=== PATIENT | male | born 1965 | race Caucasian/White ===

== ENCOUNTER → 2017-04-26 14:59 | Outpatient (CLI) | payer OTHER, SELFPAY ==
--- NOTE | 2017-04-26 15:02 | RAD_ITS ---
STUDY: X-RAY - THORACIC SPINE REASON FOR EXAM: Male, 51 years old. Pain TECHNIQUE: 3 view(s) of the thoracic spine were obtained. COMPARISON: MRI 05/28/2016. FINDINGS: There is a severe compression fracture of T10 which has been treated with kyphoplasty. There is an increase in the normal thoracic kyphosis centered at the compression fracture. There is no substantial scoliosis. Normal thoracic vertebrae and endplates. Normal disc space heights. The soft tissue structures are unremarkable. RAD/Thoracic Spine 3 Views IMPRESSION: Compression fracture of T10 treated with kyphoplasty. No other focal or acute abnormalities. Electronically Signed: Cornelius Morris MD at 15:30 EDT , Service support ,
== END ==
PROVIDERS: Family Provider Family Medicine; PCP Family Medicine; Visit Provider Orthopaedic Surgery
DX: M54.6 Pain in thoracic spine (principal)
CPT/HCPCS: 72072

== ENCOUNTER 2017-10-10 12:04 | Day surgery (SDC) | payer OTHER, SELFPAY ==
[2017-08-04 09:01] VITALS: BMI 25.7
[2017-10-10] VITALS (7 sets, daily range): BP systolic 99–121; BP diastolic 59–91; PULSE 58–89; RESP 14–18; TEMP 36.6; O2SAT 96–99; BMI 24.3
--- NOTE | 2017-10-10 | IMM_PTH ---
PATIENT: PAUL EMERSON LOC: EN U#:[id number] AGE/SX: 52/M ROOM: RE10/10/[address]: Dr. Neptali Rahman MD : 1965 BED: DIS: 10/10/2017 SPEC #: [id number] RECD: 10/12/17 14:19 STATUS: NICHOLE REJill #: [id number] DINORA: 10/10/17 00:[address]: Neptali Rahman DEPT: IMMUNOHISTOCHEMISTRY RECD BY: Chayo Anderson ENTERED: 10/12/17 14:20 SP TYPE: IMMUNO OTHR DR: Dr. Darrell Melo MD Tissues: A - Stomach, NOS Procedures: H Pylori (initial) PHYSICIAN & INSTITUTION [place] [id number] SPECIMEN INFORMATION: Tissue Source: A ? Antral biopsy Clinical Info: Reflux, Colon CA screen Specimen Number: [id number] CPT code: 85014 METHODOLOGY: Deparaffinized sections of prefer/formalin-fixed tissue or PAP/DQ stained slides are incubated with monoclonal/polyclonal antibodies/oligonucleotide probes. Localization is made via biotin free immunoperoxidase method. Appropriate controls are performed and reacted as expected. Results on target cell population are indicated in the following table: RESULTS: ANTIBODY / CLONE RESULT Block A H Pylori (polyclonal) negative These tests were developed and their performance characteristics determined by [facility]. They may not have been cleared or approved by the U.S. Food and Drug Administration. The FDA has determined that such clearance or approval is not necessary. INTERPRETATION: Gastric antrum, biopsy: Negative for Helicobacter pylori organisms. AM:osvaldo 10/13/17
--- NOTE | 2017-10-10 07:13 | PCM.HP.BLA ---
History and Physical Date of Admission: 10/10/17 HISTORY AND PHYSICAL ? Munir Grove 1965 ? REFERRING PHYSICIAN: ~~Guillermo Melo ? CHIEF COMPLAINT: ~~Consult (Consult Colonoscopy) ? HPI: The patient is a 52 year old male referred for endoscopy. ~Munir notes no colon complaints. ~He denies any change in bowel habits, weight changes, blood in stools, black tarry stools or abdominal pain. ~He denies any family history of colon issues. ~He notes heartburn and reflux symptoms, unsure if this night be related to his medications. ~Munir has not~undergone prior endoscopy. ~ ? The patient is being seen by me today at the request of Dr. Melo~for my opinion and advice regarding screening colonoscopy. ~Past medical history significant for asthma, chronic back pain for which he follows with pain management, past history of DVT, hyperlipidemia, multiple myeloma for which he follows with Dr. Perkins. ~Patient denies any chest pain, shortness of breath or other concerns. ~He denies problems with sedation in the past. ? ? PAST?MEDICAL?HISTORY PAST MEDICAL HISTORY Diagnosis Date Asthma ? Chronic cholecystitis ? ? s/p cholecystectomy Compression fracture of body of thoracic vertebra (HCC) ? ? [facility] DVT (deep venous thrombosis) (HCC) ? Hyperlipidemia ? Migraine ? Multiple myeloma (HCC) ? ? Seeing Dr. Perkins and Dr. Quiroz Palpitation ? Skin cancer of face ? ? squamous cell, Seeing Miki Boucher yearly ? ? PAST?SURGICAL?HISTORY PAST SURGICAL HISTORY Procedure Laterality Date CHOLECYSTECTOMY W/CHOLANGIOGRAPHY ? 02/19/2016 EXTRACTION ERUPTED TOOTH/EXR ? ? ? wisdom teeth KNEE SURGERY HX ? ? ? arthroscopic, bilateral PAST SURGICAL HISTORY OF Right ? ? knee bursa sac removal VERTEBROPLASTY ? 09/2016 ? T10 ? ? CURRENT?MEDICATIONS ? Current Outpatient Prescriptions: calcium carbonate/vitamin D3 (CALCIUM 500 + D ORAL) Take by mouth. [START ON 07/22/2017] morphine SR (MS CONTIN) 15 mg 12 hr tablet Take 1 tablet by mouth every 8 hours for 30 days. FOR PAIN.Earliest Fill Date: 07/22/17 lenalidomide (REVLIMID) 10 mg capsule Take 1 capsule by mouth once daily for 21 days. Every 28 days acyclovir (ZOVIRAX) 400 mg tablet Take 400 mg by mouth twice daily. triamcinolone acetonide (KENALOG) 0.1 % cream Apply 1 application to affected area twice daily. Apply sparingly to area for rash/itching. ranitidine (ZANTAC) 150 mg tablet Take 1 tablet by mouth daily at bedtime. aspirin, enteric coated (ASPIRIN, ENTERIC COATED) 325 mg EC tablet Take 1 tablet by mouth once daily. POLYETHYLENE GLYCOL 3350 (MIRALAX ORAL) Take ~by mouth. as needed albuterol HFA (PROAIR HFA) 90 mcg/actuation inhaler Inhale 2 Puffs as instructed every 4 hours as needed. fluticasone (FLOVENT HFA) 44 mcg/actuation inhaler Inhale 2 Puffs as instructed twice daily. Use with spacer. Rinse mouth out after use. (Patient not taking: Reported on 06/17/2017 ) oxyCODONE IR (ROXICODONE) 5 mg immediate release tablet Take 1 tablet by mouth every 6 hours as needed. ? No current facility-administered medications for this visit. ? ALLERGIES: Iodine; Seasonal Allergies ? PERSONAL HISTORY: SOCIAL?HISTORY Social History ~~Marital status: ~~~~~~~~~~~~Spouse name: ~~~~~~~~~~~~~~~~~~ ~~Years of education: ~~~~~~~~~~~~~~~~Number of children: ~~~~~~~~~~ ? 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 Social History Main Topics ~~Smoking status: Former Smoker ~~~~~~~~~~~~~~~~~~~~~~~~~~~~~~~~~~~~~~~~~~~~~~~~~~~~~~~~ ~~~~~Packs/day: 1.00 ~~~~~Years: 5.00 ~~~ ~~~~~Types: Cigarettes ~~~~~Quit date: 02/14/1991 ~~Smokeless tobacco: Never Used ~~~~~~~~~~~~~~~~~~~ ~~Comment: quit approx 1991 ~~Alcohol use: No ~~~~~~~~~ ~~Drug use: No ~~~~~~~~~ ~~Sexual activity: Not Currently ~~~ ? ? FAMILY HISTORY: FAMILY?HISTORY FAMILY HISTORY Problem Relation Age of Onset Breast Cancer Mother ? ? ? breast Diabetes Paternal Grandmother ? Cancer Paternal Aunt ? ? REVIEW OF SYMPTOMS: ~~The review of systems data was entered by the nurse and reviewed by me ? Nursing Notes: Kevin Tyson LPN ~07/20/2017 ~3:56 PM ~Signed REVIEW OF SYSTEMS: ~~~~~General:~~~The patient NOTES fatigue, denies weight loss, denies weight gain, denies feeling hot, and denies feelings of cold. ~~~~~Eyes: ~The patient denies glaucoma, denies eye injury/surgery, wears glasses or contacts. ~~~~~Ear/Nose/Throat: ~The patient NOTES allergies, denies hayfever, denies ear infections, and denies bloody noses. ~~~~~Cardiovascular: ~The patient denies chest pain, denies heart disease, denies high blood pressure,denies cardiac stent, denies prior heart attack, denies irregular heart beat, denies high cholesterol, ~NOTES poor circulation, denies heart failure, other cardiac issues, denies claudication, denies cold feet, denies peripheral arterial stent. ~~~~~Respiratory: ~The patient denies tuberculosis, denies pneumonia, denies frequent cough, denies pulmonary embolism, denies shortness of breath, and denies coughing up blood. ~~~~~Gastrointestinal: ~The patient denies difficulty swallowing, NOTES acid reflux, denies ulcers, NOTES vomiting, denies jaundice/hepatitis, denies gallbladder problems, denies black or tarry stools, NOTES hemorrhoids, NOTES bleeding from rectum, denies diverticulitis, denies constipation, denies diarrhea, denies loss of stool control, and denies hernias. ~~~~~Kidney/Bladder: ~The patient denies kidney stones, denies urine infections, and denies bloody urine. ~~~~~Skin: ~The patient NOTES a history of skin cancer, denies bleeding/changing moles, and denies a history of skin rash. ~~~~~Neurologic: ~The patient denies a history of epilepsy/convulsions, NOTES headaches, denies head/spinal injuries, and denies stroke/TIA. ~~~~~Psychiatric: ~The patient denies psychiatric medications, denies depression, and denies voices, denies substance abuse. ~~~~~Endocrine: ~The patient denies thyroid disorders, denies diabetes, and denies hormonal problems. ~~~~~Hematologic: ~The patient denies a history of bruising, denies bleeding, and denies anemia, denies blood clots. ~~~~~Infections: ~The patient denies a history of measles and mumps, denies rheumatic fever, and denies sexually transmitted diseases. ~~~~~Musculoskeletal: ~The patient NOTES back pain/injury, denies back problems, denies sciatica, denies knee/foot trouble, denies arthritis, or denies gout. ? ? When was patient's last Mammogram screening? N/A ? ~Last Colonoscopy: ~N/a ? Kevin Tyson LPN~ I have confirmed and edited as necessary, the PFSH and ROS obtained by others. ? PHYSICAL EXAMINATION: ? General: ~The patient is 52 year old male, well nourished, well hydrated in no acute distress. ~The patient is oriented to time, place, and person. ? VITALS: Blood pressure 108/78, pulse 60, weight 92.4 kg (203 lb 9.6 oz).~Body mass index is 26.86 kg/m?.~ ? HEENT: ~Normal cephalic, ataumatic, pupils are equally round, sclera are anicteric, mucous membranes are moist, oropharynx is clear. ~Neck has no masses, asymmetry or lymphadenopathy. ? Respiratory: ~Clear to auscultation and percussion. ~Normal respiratory excursion and pattern. ? Cardiac: ~Examination is regular rate and rhythm. ? Abdominal exam: ~Soft, nontender, ~with no palpable masses. ~No hepatosplenomegaly. ~No palpable hernias. ? ? Extremities: ~no clubbing, cyanosis or edema. ~No adenopathy. ? ? ? LABORATORY VALUES: As Noted ? RADIOLOGIC STUDIES: ~As Noted ? Assessment ~ IMPRESSION: encounter for screening colonoscopy, reflux symptoms ? PLAN: We will plan for upper and lower~lower endoscopy.~~~We discussed the risks and benefits of the planned endoscopy. ~I have informed the patient that complications can occur including failure to complete the endoscopy and perforation. ~The patient had the opportunity to ask questions concerning the planned endoscopy. ~My staff has also explained the procedure to the patient in understandable terms and has given the patient printed material concerning the procedure. ~The patient freely consents to surgery. ? I plan to use golytely bowel preparation for endoscopy ? The patient takes prescription medications which I feel decrease the chance of successful sedation. ~I therefore plan for monitored anesthetic care. ? Diagnoses: (Z12.11) Special screening for malignant neoplasm of colon ~(primary encounter diagnosis) (K21.9) Gastroesophageal reflux disease, esophagitis presence not specified (G89.29) Other chronic pain (C90.01) Multiple myeloma in remission (HCC) ? My findings have been communicated to Dr. Melo~via shared medical record. ~This note will be forwarded to Dr. Guillermo Melo MD. ~~ Return to Clinic: The patient is instructed to follow-up with me 1 week post operatively. ? Li Edmondson PA-C
--- NOTE | 2017-10-10 13:15 | EGD_PTH ---
PATIENT: PAUL EMERSON LOC: EN U#:[id number] AGE/SX: 52/M ROOM: RE10/10/[address]: Dr. Neptali Rahman MD : 1965 BED: DIS: 10/10/2017 SPEC #: [id number] RECD: 10/10/17 15:30 STATUS: NICHOLE NEPTALI #: [id number] DINORA: 10/10/17 13:[address]: Neptali Rahman DEPT: SURGICAL PATHOLOGY RECD BY: Cruz Marquez ENTERED: 10/11/17 12:02 SP TYPE: EGD BIOPSY ISAIAH DR: Dr. Darrell Melo MD Tissues: A - Gastric mucous membrane B - Esophageal mucous membrane C - Esophageal mucous membrane Procedures: Special Stain Group I Surgery Specimen Level IV GMS Stain (control) HEADER OPERATION: Colonoscopy, EGD ([facility] [place]) PRE-OP DIAGNOSIS: Reflux, screening for colon CA TISSUE SUBMITTED: A ? Antral biopsy, B ? Distal esophagus biopsy, C ? Mid esophageal biopsy MICROSCOPIC DIAGNOSIS A. Gastric antrum, biopsy: Mild chronic gastritis. B. Distal esophagus, biopsy: Gastroesophageal junction mucosa with chronic and focal acute inflammation. Negative for fungal organisms. C. Mid esophagus, biopsy: Fragment of benign squamous mucosa. AM:osvaldo 10/12/17 COMMENT A. The results of immunohistochemistry for Helicobacter pylori will be reported separately ([id number]). B. GMS stain with matched control was used in the evaluation of this case. MICROSCOPIC DESCRIPTION Slides are reviewed. GROSS DESCRIPTION A - Received in fixative is one container labeled with the patient's name and designated antral biopsy. The specimen consists of one irregular fragment of light canela soft tissue that measures 0.6 x 0.2 x 0.1 cm. The specimen is totally submitted in one cassette. B - Received in fixative is one container labeled with the patient's name and designated distal esophagus. The specimen consists of two irregular fragments of light canela soft tissue that in aggregate measure 0.6 x 0.5 x 0.1 cm. The specimen is totally submitted in one cassette. C - Received in fixative is one container labeled with the patient's name and designated distal esophagus. The specimen consists of one irregular fragment of light canela soft tissue that measures 0.3 x 0.2 x 0.1 cm. The specimen is totally submitted in one cassette. / AM:osvaldo 10/11/17 TC:2 CPT: 07868 x3, 43769
--- NOTE | 2017-10-10 13:52 | PCM.OPRPT ---
Report of Operation Date of Procedure: 10/10/17 Pre-Operative Diagnosis: GERD, SCREENING FOR COLON CANCER Post-Operative Diagnosis: GASTRITIS, ESOPHAGITIS, NORMAL COLONOSCOPY Surgery/Procedure Performed:: EGD WITH BIOPSY, COLONOSCOPY warp knit operator: None Type of Anesthesia:: MAC Anesthesiologist: Gigi Peña - ASA2 Specimen's removed: GASTRIC, DISTAL ESOPHAGUS, MID ESOPHAGUS Description of Procedure: The patient was brought to the endoscopy suite. Sign in was performed verifying patient, site, planned procedure, critical nursing information, the patient was monitored with cardiac, pulse oximetric, and blood pressure monitoring devices. Monitored anesthetic care was provided for sedation. Following IV sedation and after the oropharynx was sprayed with Cetacaine spray, a video gastroscope was inserted in the oropharynx and advanced down the esophagus without difficulty. The scope was advanced through the stomach, through the pylorus through the duodenum to the proximal jejunum. the jejunum and duodenum appeared unremarkable. As the scope was withdrawn, the patient noted to have erosive gastritis in the distal half of the stomach. Biopsies were obtained for H. pylori and pathology. The proximal half of stomach appeared relatively unremarkable. There was no true hiatal hernia but a somewhat relaxed lower esophageal sphincter. The GE junction demonstrates felt to be more consistent with reflux esophagitis. Biopsy was obtained and sent to pathology. The midesophagus was unremarkable. A mid esophageal biopsy was obtained. The patient was positioned for colonoscopy. A digital rectal exam was performed which revealed no palpable abnormalities. The video colonoscope was inserted and advanced to the cecum as verified by the ileocecal valve, cecal base anatomic features and palpation. the cecum, hepatic flexure, transverse colon, descending colon, rectosigmoid were all unremarkable. Scope was retroflexed and this was unremarkable The patient tolerated the procedure well and was brought to recovery in stable condition
== END 2017-10-10 15:17 | disposition home or self-care (01) ==
LOC: EN 12:05 → AC 12:06
PROVIDERS: Family Provider Family Medicine; PCP Family Medicine; Visit Provider Surgery
PROC: 0DJD8ZZ Inspection of Lower Intestinal Tract, Via Natural or Artificial Opening Endoscopic (ICD-10-PCS; CPT 45378; principal; 2017-10-10 13:10)
DX: Z12.11 Encounter for screening for malignant neoplasm of colon (principal); K29.70 Gastritis, unspecified, without bleeding; K21.0 Gastro-esophageal reflux disease with esophagitis; C90.01 Multiple myeloma in remission; G89.29 Other chronic pain; J45.909 Unspecified asthma, uncomplicated; G43.909 Migraine, unspecified, not intractable, without status migrainosus; Z86.718 Personal history of other venous thrombosis and embolism; Z85.828 Personal history of other malignant neoplasm of skin; Z90.49 Acquired absence of other specified parts of digestive tract; Z79.82 Long term (current) use of aspirin; Z79.899 Other long term (current) drug therapy; Z87.891 Personal history of nicotine dependence
CPT/HCPCS: 45378; 43239; 88305; 88312; 88342; J7120

== ENCOUNTER → 2019-06-26 09:12 | Outpatient (CLI) | payer OTHER, SELFPAY ==
[2017-08-04 09:01] VITALS: BMI 25.7
[2017-10-10 12:26] VITALS: BMI 24.3
[2019-06-26 10:39] LABS: Absolute Lymphocyte Count 1.55 X10^3/uL (0.83-4.51); Absolute Neutrophil Count 1.6 X10^3/uL (2.0-7.7); Basophil# 0.04 X10^3/uL; Basophil% 1.1 % (0-1); Eosinophil# 0.12 X10^3/uL; Eosinophils% 3.3 % (0-5); Hematocrit 45.5 % (40-54); Hemoglobin 15.7 g/dL (13.0-16.5); Lymphocyte # 1.55 X10^3/ul (4.0); Lymphocyte % 42.8 % (19-41); Mean Corp Hgb Conc 34.5 g/dL (32-36); Mean Corpuscular Hgb 34.1 pg (27.0-32.0); Mean Corpuscular Volume 98.9 fL (80-94); Monocyte# 0.26 X10^3/uL; Monocyte% 7.2 % (0-10); NRBC Flagged by Analyzer 0 % (0-5); Neutrophil # 1.64 X10^3/uL (2.7-7.7); Neutrophil % 45.3 % (47-70); Platelet Count 181 K/mm3 (150-450); RBC Distribution Width CV 12.7 % (11.6-14.6); RBC Distribution Width SD 46.3 fl (35.1-43.9); White Blood Count 3.6 K/mm3 (4.4-11.0)
[2019-06-26 13:20] LABS: ALB/GLOB Ratio 1.1 RATIO (0.9-2.4); AST(SGOT) 26 U/L (15-37); Alanine Aminotransfer ALT/SGPT 43 U/L (16-61); Albumin, Serum 3.8 g/dL (3.2-5.0); Alkaline Phosphatase 80 U/L (45-117); Anion Gap 8 (5-15); BUN 11 mg/dL (7-18); BUN/Creat Ratio 11.5 RATIO (10-20); Calcium,Total 9.1 mg/dL (8.5-10.1); Chloride 103 mmol/L (98-107); Creatinine, Serum 0.96 mg/dL (0.70-1.30); EST Glomerular Filtration Rate 88 mL/min (>60); Est Glom Filt Rate - Afr Amer 106 mL/min (>60); Globulin 3.4 g/dL (2.2-4.2); Glucose 79 mg/dL (74-106); Potassium 3.8 mmol/L (3.5-5.1); Protein, Total 7.2 g/dL (6.4-8.2); Sodium Level 139 mmol/L (136-145); Uric Acid 4.8 mg/dL (3.5-7.2)
[2019-06-26 13:46] LABS: LDH 140 U/L (87-241)
[2019-06-27 16:07] LABS: Free Kappa Light Chains 18.1 mg/L (3.3-19.4); Free Lambda Light Chains 13.7 mg/L (5.7-26.3); Immunoglobulin A 69 mg/dL (90-386); Immunoglobulin G 1035 mg/dL (603-1613); PROEL- A/G Ratio 1.4 (0.7-1.7); PROEL- Albumin 3.8 g/dL (2.9-4.4); PROEL- Alpha-1 Globulin 0.2 g/dL (0.0-0.4); PROEL- Alpha-2 Globulin 0.6 g/dL (0.4-1.0); PROEL- Globulin, Total 2.8 g/dL (2.2-3.9); PROEL- TOTAL PROTEIN 6.6 g/dL (6.0-8.5)
[2019-06-27 22:34] LABS: Immunoglobulin M 17 mg/dL (20-172)
== END ==
PROVIDERS: PCP Family Medicine; Referring Provider Internal Medicine Hematology; Visit Provider Internal Medicine Hematology
DX: C90.00 Multiple myeloma not having achieved remission (principal)
CPT/HCPCS: 36415; 80053; 82784; 83615; 83883; 84165; 84550; 85025; 86334

== ENCOUNTER → 2021-01-22 | Outpatient (CLI) | payer OTHER, SELFPAY ==
[2017-08-04 09:01] VITALS: BMI 25.7
== END | disposition home or self-care (01) ==
LOC: LABSPEC 13:10
PROVIDERS: PCP Family Medicine; Referring Provider Physician Assistant; Visit Provider Physician Assistant
DX: Z11.52 Encounter for screening for COVID-19 (principal)
CPT/HCPCS: 87635; U0005; U0003

== ENCOUNTER → 2022-05-12 | Outpatient (CLI) | payer OTHER, SELFPAY ==
[2017-08-04 09:01] VITALS: BMI 25.7
== END | disposition home or self-care (01) ==
LOC: LABSPEC 09:19
PROVIDERS: PCP Family Medicine
DX: C90.00 Multiple myeloma not having achieved remission (principal)
CPT/HCPCS: 86850; 86900; 86901

== ENCOUNTER 2022-12-01 08:33 | Outpatient (CLI) | payer OTHER, SELFPAY ==
[2017-08-04 09:01] VITALS: BMI 25.7
[2022-12-01 08:39] VITALS: BP 116/74; PULSE 98; RESP 16; TEMP 35.7; O2SAT 97
[2022-12-01] MEDS: 0.9% Normal Saline (500mL Bag) 500 ML IV (08:48)
[2022-12-01] MEDS: 0.9% NaCl Peripheral Flush Adult/Peds IV (08:50)
[2022-12-01 09:41] VITALS: BP 117/80; PULSE 90; RESP 16; TEMP 36.6; O2SAT 97
[2022-12-01 09:56] VITALS: BP 110/74; PULSE 88; RESP 16; TEMP 36.4; O2SAT 98
[2022-12-01] MEDS: Magnesium Sulfate 2 GM IV IV (10:47)
[2022-12-01 12:59] VITALS: BP 115/75; PULSE 74
== END 2022-12-01 08:34 | disposition home or self-care (01) ==
LOC: MEDOUTP 08:33
PROVIDERS: PCP Family Medicine
DX: C90.00 Multiple myeloma not having achieved remission (principal); E78.01 Familial hypercholesterolemia
CPT/HCPCS: 36415; 36430; 86850; 86870; 86900; 86901; 86965; J7040; P9035; A4216

== ENCOUNTER 2022-12-03 08:49 | Outpatient (CLI) | payer OTHER, SELFPAY ==
[2017-08-04 09:01] VITALS: BMI 25.7
[2022-12-03 09:12] VITALS: BP 130/75; PULSE 95; RESP 16; TEMP 36.2; O2SAT 98
[2022-12-03 09:54] VITALS: BP 118/85; PULSE 94; RESP 16; TEMP 36.5; O2SAT 98
[2022-12-03 10:13] VITALS: BP 113/80; PULSE 91; RESP 16; TEMP 37; O2SAT 98
[2022-12-03 10:42] VITALS: BP 113/80
== END 2022-12-03 08:50 | disposition home or self-care (01) ==
LOC: MEDOUTP 08:50
PROVIDERS: PCP Family Medicine
DX: C90.01 Multiple myeloma in remission (principal); E87.1 Hypo-osmolality and hyponatremia
CPT/HCPCS: 36430; 86900; 86901; 86965; J7040; P9035; A4216

== ENCOUNTER 2022-12-09 10:02 | Outpatient (RCR) | payer OTHER, SELFPAY ==
[2017-08-04 09:01] VITALS: BMI 25.7
[2022-12-02 10:23] LABS: Absolute Lymphocyte Count 0.66 X10^3/uL (0.83-4.51); Absolute Neutrophil Count 1.5 X10^3/uL (2.0-7.7); Basophil# 0.03 X10^3/uL; Basophil% 1.1 % (0-1); Eosinophil# 0.01 X10^3/uL; Eosinophils% 0.4 % (0-5); Hematocrit 31.1 % (40-54); Hemoglobin 10.4 g/dL (13.0-16.5); Lymphocyte # 0.66 X10^3/ul (0.83-4.51); Lymphocyte % 24.6 % (19-41); Mean Corp Hgb Conc 33.4 g/dL (32-36); Mean Corpuscular Hgb 35.9 pg (27.0-32.0); Mean Corpuscular Volume 107.2 fL (80-94); Monocyte# 0.49 X10^3/uL; Monocyte% 18.3 % (0-10); NRBC Flagged by Analyzer 0 % (0-5); Neutrophil # 1.45 X10^3/uL (2.7-7.7); Neutrophil % 54.1 % (47-70); POSITIVE COUNT YES; Platelet Count 13 K/mm3 (150-450); RBC Distribution Width CV 13.8 % (11.6-14.6); White Blood Count 2.7 K/mm3 (4.4-11.0)
[2022-12-02 10:31] LABS: Differential Indicated SCAN CRITERIA MET
[2022-12-02 10:45] LABS: ALB/GLOB Ratio 0.9 RATIO (0.9-2.4); AST(SGOT) 46 U/L (15-37); Alanine Aminotransfer ALT/SGPT 61 U/L (16-61); Alkaline Phosphatase 151 U/L (45-117); Anion Gap 5 (5-15); BUN 12 mg/dL (7-18); BUN/Creat Ratio 13.6 RATIO (10-20); Calcium,Total 8.7 mg/dL (8.5-10.1); Chloride 107 mmol/L (98-107); Creatinine, Serum 0.88 mg/dL (0.70-1.30); EST Glomerular Filtration Rate 95 mL/min (>60); Est Glom Filt Rate - Afr Amer 115 mL/min (>60); Globulin 3.5 g/dL (2.2-4.2); Glucose 121 mg/dL (74-106); Potassium 4.3 mmol/L (3.5-5.1); Protein, Total 6.5 g/dL (6.4-8.2); Sodium Level 136 mmol/L (136-145)
[2022-12-02 10:51] LABS: Platelet Estimate MKD DEC (ADEQ)
[2022-12-02 18:17] LABS: Xtra Tube EP Lab EXTRA TUBE
[2022-12-03 14:26] LABS: Pathologist Review Reviewed
[2022-12-06 09:26] LABS: Absolute Lymphocyte Count 1.57 X10^3/uL (0.83-4.51); Absolute Neutrophil Count 2.6 X10^3/uL (2.0-7.7); Basophil# 0.03 X10^3/uL; Basophil% 0.6 % (0-1); Eosinophil# 0.03 X10^3/uL; Eosinophils% 0.6 % (0-5); Hematocrit 31.8 % (40-54); Hemoglobin 10.9 g/dL (13.0-16.5); Lymphocyte # 1.57 X10^3/ul (0.83-4.51); Lymphocyte % 32.4 % (19-41); Mean Corp Hgb Conc 34.3 g/dL (32-36); Mean Corpuscular Hgb 36.2 pg (27.0-32.0); Mean Corpuscular Volume 105.6 fL (80-94); Mean Platelet Vol. 12.7 fl (6.2-12.0); Monocyte# 0.57 X10^3/uL; Monocyte% 11.8 % (0-10); NRBC Flagged by Analyzer 0 % (0-5); Neutrophil # 2.62 X10^3/uL (2.7-7.7); POSITIVE COUNT YES; RBC Distribution Width CV 14.8 % (11.6-14.6); RBC Distribution Width SD 55.8 fl (35.1-43.9); Red Blood Count 3.01 M/mm3 (4.6-6.2); White Blood Count 4.9 K/mm3 (4.4-11.0)
[2022-12-06 09:35] LABS: Differential Indicated SCAN CRITERIA MET; Platelet Count 50 K/mm3 (150-450)
[2022-12-06 09:58] LABS: Platelet Estimate MOD DEC (ADEQ)
[2022-12-06 10:01] LABS: AST(SGOT) 41 U/L (15-37); Alanine Aminotransfer ALT/SGPT 46 U/L (16-61); Albumin, Serum 3.2 g/dL (3.2-5.0); Alkaline Phosphatase 131 U/L (45-117); Anion Gap 7 (5-15); BUN 12 mg/dL (7-18); BUN/Creat Ratio 10.7 RATIO (10-20); Calcium,Total 9.3 mg/dL (8.5-10.1); Chloride 104 mmol/L (98-107); Creatinine, Serum 1.12 mg/dL (0.70-1.30); EST Glomerular Filtration Rate 72 mL/min (>60); Est Glom Filt Rate - Afr Amer 87 mL/min (>60); Globulin 3.2 g/dL (2.2-4.2); Glucose 140 mg/dL (74-106); Protein, Total 6.4 g/dL (6.4-8.2); Sodium Level 135 mmol/L (136-145)
[2022-12-07 13:08] LABS: Pathologist Review Reviewed
[2022-12-09 10:22] LABS: Absolute Lymphocyte Count 1.37 X10^3/uL (0.83-4.51); Absolute Neutrophil Count 1.7 X10^3/uL (2.0-7.7); Basophil# 0.02 X10^3/uL; Basophil% 0.5 % (0-1); Eosinophil# 0.16 X10^3/uL; Eosinophils% 4.2 % (0-5); Hematocrit 32.9 % (40-54); Hemoglobin 11.3 g/dL (13.0-16.5); Lymphocyte # 1.37 X10^3/ul (0.83-4.51); Lymphocyte % 36.1 % (19-41); Mean Corp Hgb Conc 34.3 g/dL (32-36); Mean Corpuscular Hgb 36.1 pg (27.0-32.0); Mean Corpuscular Volume 105.1 fL (80-94); Mean Platelet Vol. 11.6 fl (6.2-12.0); Monocyte# 0.52 X10^3/uL; Monocyte% 13.7 % (0-10); NRBC Flagged by Analyzer 0 % (0-5); Neutrophil # 1.71 X10^3/uL (2.7-7.7); Neutrophil % 45.2 % (47-70); Platelet Count 119 K/mm3 (150-450); RBC Distribution Width CV 15.3 % (11.6-14.6); RBC Distribution Width SD 58.8 fl (35.1-43.9); Red Blood Count 3.13 M/mm3 (4.6-6.2); White Blood Count 3.8 K/mm3 (4.4-11.0)
[2022-12-09 10:43] LABS: ALB/GLOB Ratio 1.1 RATIO (0.9-2.4); AST(SGOT) 42 U/L (15-37); Alanine Aminotransfer ALT/SGPT 43 U/L (16-61); Albumin, Serum 3.3 g/dL (3.2-5.0); Alkaline Phosphatase 122 U/L (45-117); Anion Gap 2 (5-15); BUN 12 mg/dL (7-18); BUN/Creat Ratio 11.9 RATIO (10-20); Calcium,Total 9.4 mg/dL (8.5-10.1); Chloride 104 mmol/L (98-107); Creatinine, Serum 1.01 mg/dL (0.70-1.30); EST Glomerular Filtration Rate 81 mL/min (>60); Est Glom Filt Rate - Afr Amer 99 mL/min (>60); Globulin 3.1 g/dL (2.2-4.2); Glucose 111 mg/dL (74-106); Potassium 4.2 mmol/L (3.5-5.1); Protein, Total 6.4 g/dL (6.4-8.2); Sodium Level 136 mmol/L (136-145)
[2022-12-09 18:04] LABS: Xtra Tube EP Lab EXTRA TUBE
== END 2022-12-14 23:59 ==
LOC: PAVLAB 10:02
PROVIDERS: PCP Family Medicine
DX: C90.01 Multiple myeloma in remission (principal); E87.1 Hypo-osmolality and hyponatremia
CPT/HCPCS: 36415; 80053; 85025

== ENCOUNTER 2023-01-10 16:02 | Emergency (ER) | payer OTHER, SELFPAY ==
[2017-08-04 09:01] VITALS: BMI 25.7
[2023-01-10 16:03] VITALS: BP 146/101; PULSE 104; RESP 18; TEMP 37.4; O2SAT 98; BMI 28.0
--- NOTE | 2023-01-10 16:19 | RAD_ITS ---
STUDY: X-RAY CHEST REASON FOR EXAM: Male, 57 years old. fever TECHNIQUE: Single frontal view of the chest. COMPARISON: December 01, 2016 FINDINGS: Possible small ill-defined nodular density right midlung field. There is no demonstrated pleural abnormality. Normal size heart. Normal mediastinum and juan. Normal visualized pulmonary arteries. Normal visualized aortic arch and descending thoracic aorta. Normal visualized thoracic spine. Normal visualized ribs, clavicles, and shoulders. There is no demonstrated abnormality of the visualized soft tissue structures of the upper abdomen. RAD/Chest 1 View (Portable) IMPRESSION: Possible nodular infiltrate mid lung field on the right. Recommend follow-up to resolution with CTA chest or CT chest. Electronically Signed: Henry Worthington MD at 17:23 EST ,
--- NOTE | 2023-01-10 16:31 | EX.ED.VIS.UR ---
HPI HPI - URI History of Present Illness Chief Complaint: Cold Sx Informant: patient Onset/Context/Timing Onset: Days Context: Gradual Onset Timing: Intermittent Current Severity: Mild Maximum Severity: Mild Associated Symptoms Associated Symptoms: Positive for Myalgias; Negative for Nasal Congestion, Headache, Sinus Pressure, Nausea, Vomiting, Diarrhea, Shortness of Breath, Chest Pain, Nonproductive cough, Hemoptysis or Productive Cough Narrative Narrative: 57-year-old male history of multiple myeloma for which he underwent stem cell transplant done in [facility] in early November. States he had flulike symptoms last several days with bodyaches and a fever as high as 100. Denies nausea, vomiting or diarrhea. Denies cough. Denies shortness of breath. Denies abdominal pain. Denies dysuria. Just body aches and low-grade fever. Prior similar symptoms: Yes Recent Illness/Hospitalization: Yes ROS ROS ED ROS Narrative Genna is. Aches. Low-grade fever. Review of Systems ROS Unobtainable: Denies due to encephalopathy Constitutional Constitutional ED: Reports chills and fever(s) Eyes Eyes: Denies blurry vision ENT ENT ED: Denies ear pain, rhinorrhea or sore throat Cardiovascular Cardiovascular: Denies chest pain Respiratory/Chest Respiratory/Chest: Denies cough, dyspnea or dyspnea on exertion Gastrointestinal Gastrointestinal: Denies abdominal pain, constipation, diarrhea, melena, nausea or vomiting Genitourinary Genitourinary ED: Denies dysuria, hematuria, LMP (females 10-50) or urinary frequency Musculoskeletal Musculoskeletal: Denies arthralgias, back pain, myalgias or neck pain Integumentary Denies abscess, Abrasions or rash Neurologic Neurologic: Denies headache(s), paresthesias or weakness Psychiatric Psychiatric: Denies anxiety, depression or suicidal ideation Endocrine Endocrinology: Denies cold intolerance Hematologic/Lymphatic Hematologic/Lymphatic: Denies easy bleeding Allergic/Immunologic Allergic/Immunologic ED: Denies mouth swelling PFSH PFSH Medical History Asthma Depression Essential (primary) hypertension GERD (gastroesophageal reflux disease) H/O multiple myeloma Hyperlipidemia Left leg DVT (~07/29/16) Lung nodule Migraine Pathologic compression fracture of thoracic vertebra Skin cancer of forehead (~2013) Home Medications albuterol sulfate 90 mcg/actuation aerosol inhaler 2 puff inhalation Q4H PRN shortness of breath or wheezing 02/12/22 [History Last Taken Unknown] lisinopril 20 mg tablet 20 mg PO DAILY 02/12/22 [History Last Taken Unknown] rizatriptan 5 mg tablet See Rx Instructions PO .COMPLEX 02/12/22 [History Last Taken Unknown] calcium carbonate 600 mg-vitamin D3 10 mcg (400 unit) tablet 1 tab PO DAILY 02/24/22 [History Last Taken Unknown] omeprazole 40 mg capsule,delayed release 40 mg PO DAILY 05/14/22 [History Last Taken Unknown] ondansetron HCl 4 mg tablet 4 mg PO Q8H PRN nausea and vomiting 05/14/22 [History Last Taken Unknown] acyclovir 400 mg tablet 400 mg PO DAILY 01/10/23 [History Last Taken Unknown] Allergy/AdvReac Type Severity Reaction Status Date / Time iodine Allergy Severe Shortness Verified 01/10/23 16:03 of breath Environmental Allergies: Allergy Intermediate Other Verified 01/10/23 16:03 Uncoded naproxen AdvReac Mild Other Verified 01/10/23 16:03 Family History Mother Breast cancer Grandmother Diabetes Aunt Cancer Father Arrhythmia Surgical History H/O knee surgery H/O vertebroplasty Hx laparoscopic cholecystectomy (~02/19/16) Hx of arthroscopy of knee (~2004) Hx of biopsy (~04/19/22) Social History Smoking Status: Former smoker Tobacco: How many years used: 5 how long ago did patient quit smokin alcohol intake: never substance use type: does not use caffeine: Yes Type: coffee Number of servings: 1 EXAM Physical Exam Narrative Exam Narrative: 57-year-old male vital signs stable afebrile. He does not look septic or toxic. He is in no distress. Temperature 99.3. Pulse ox 98% on room air no signs hypoxia. HEENT exam unremarkable. TMs normal bilaterally. Posterior pharynx normal. No erythema or exudate. No trouble swallowing nor any drooling. No stridor. Neck nontender no lymphadenopathy. Lungs clear to auscultation bilaterally. Heart regular rhythm rate about 100 no murmur. Chest wall and ribs nontender. Abdomen soft nontender. No peritoneal signs. Moving all 4 extremities. Nontender no edema. Skin no rashes. Back nontender. Neurologically is awake and alert with no focal motor deficits. Very benign well-appearing exam. Const Vital Signs: 01/10/23 16:03 01/10/23 16:40 Temperature 99.3 F H Temperature Source Temporal Pulse Rate 104 H Respiratory Rate 18 Respiratory Effort Normal Non-Labored Respiratory Pattern Normal Blood Pressure 146/101 H Blood Pressure Mean 116 Pulse Ox 98 Oxygen Delivery Method Room Air Positive well nourished and well developed; Negative for obese, cachectic or contractures General Appearance ED: well developed and NAD; Negative for cachectic, contractures, cyanotic, diaphoretic or pallor Nutritional Appearance: Negative for cachectic or obese HEENT Reports moist mucous membranes; Denies dry mucous membranes normocephalic and atraumatic; Negative for scalp tenderness Face and Sinus: Negative for sinus tenderness or maxillary instability Mouth ED: No dry mucous membranes Mouth: No dry mucous membranes Teeth and Gingiva: Negative for caries Throat: posterior oropharynx normal; Negative for tonsils abnormal or posterior oropharynx abnormal Eyes PERRL and EOMs intact bilaterally General Eye ED: Negative for pale conjunctiva or scleral icterus Neck no lymphadenopathy, supple, no meningeal signs and no JVD General: Negative for anterior neck swelling or lymphadenopathy Resp normal respiratory effort and clear to auscultation bilaterally Effort and Inspection: Negative for retractions Auscultation: Negative for rales, rhonchi or wheezes Cardio S1 normal heart sound, S2 normal heart sound and no murmurs Rate: regular rate Rhythm: regular rhythm GI non-tender, non-distended and no masses Inspection: Negative for abdominal distention Auscultation: normoactive bowel sounds Palpation: soft; Negative for tender, guarding or mass Back/Spine no CVA tenderness and normal ROM General Back: Negative for CVA tenderness Cervical Spine: Negative for cervical spine tenderness Thoracic Spine / Upper Back: Negative for thoracic spinal tenderness Lumbar Spine / Lower Back: Negative for lumbar spinal tenderness Sacrum: Negative for tenderness Extremity normal to inspection and full ROM General Extremety ED: Negative for cyanosis, tenderness or other findings General Extremity: Negative for cyanosis or other findings Neuro oriented x3, CN's II-XII intact bilaterally and no sensory deficits noted Sensorium / Orientation: alert, oriented to person, oriented to place and oriented to time; Negative for orientation impaired, lethargic or stuporous Motor Exam: strength 5/5 throughout Psych mental status grossly normal Appearance: Negative for other Attitude: No agitated Mood & Affect: Negative for depressed, anxious or tearful Skin General Skin Exam: Negative for jaundice or pallor Lesions: no lesions Rashes: no rashes Trauma: Negative for abrasion or laceration MDM MDM MDM Narrative Medical decision making narrative: 57-year-old male status post stem cell transfer for multiple myeloma. Immunocompromised. Low-grade fever and body aches. Clinically his exam is benign. Undergoing infectious workup including blood cultures, minimal COVID and flu studies. Along with chest x-ray and other labs. He has no urinary symptoms. I have again a urinalysis. Repeat exam patient is doing well at 7:25 PM. Clinically looks good. Feeling fine. We went over all his test results. I spoke to his local oncologist Dr. Matt Tejeda. Both Matt and I are comfortable the patient being discharged home not on any antibiotics at this time. I will send a complete respiratory panel. Outpatient follow-up as needed. Return if worse. History & Record Review Discussion w/independent historian: Patient and Family Additional record(s) reviewed:: Prior inpatient record, Prior outpatient record, Prior ED visit, Prior labs and No prior records Lab Data Attestation: I reviewed the patient's lab results. Lab results narrative: CBC shows a white count of 5.3. H&H of 12.4 and 36. Platelets 166. Electrolytes show potassium of 3.4. Gap is 6. Normal BUN and creatinine. Glucose 130. Liver enzymes normal. Except for alkaline phosphatase of 181. Lactic acid normal at 0.9. Urinalysis normal. Labs: Laboratory Results - last 24 hr 01/10/23 01/10/23 01/10/23 16:05 16:35 17:00 WBC 5.3 RBC 3.53 L Hgb 12.4 L Hct 36.3 L MCV 102.8 H MCH 35.1 H MCHC 34.2 RDW Std Deviation 46.9 H RDW Coeff of Jocy 12.5 Plt Count 166 MPV 10.1 Immature Gran % (Auto) 0.000 Neut % (Auto) 57.5 Lymph % (Auto) 23.7 [place] % (Auto) 10.6 H Eos % (Auto) 7.8 H Baso % (Auto) 0.4 Absolute Neuts (auto) 3.0 Absolute Lymphs (auto) 1.25 Nucleated RBC % 0 Sodium 138 Potassium 3.4 L Chloride 106 Carbon Dioxide 26.0 Anion Gap 6 BUN 12 Creatinine 1.00 Estim Creat Clear Calc 97.04 Est GFR (MDRD) Af Amer 100 Est GFR (MDRD) Non-Af 82 BUN/Creatinine Ratio 12.0 Glucose 130 H Lactic Acid 0.9 Calcium 8.5 Total Bilirubin 0.60 AST 49 H ALT 67 H Alkaline Phosphatase 181 H Total Protein 6.3 L Albumin 3.1 L Globulin 3.2 Albumin/Globulin Ratio 1.0 Urine Color Yellow Urine Clarity Clear Urine pH 6.5 Ur Specific [place] 1.010 Urine Protein Negative Urine Glucose (UA) Normal Urine Ketones Negative Urine Occult Blood Negative Urine Nitrite Negative Urine Bilirubin Negative Urine Urobilinogen Normal Ur Leukocyte Esterase Negative Urine RBC 0 SEEN Urine WBC 0 SEEN Ur Squamous Epith Cells 0 SEEN Urine Bacteria 0 SEEN Urine Mucus 0 SEEN Radiography Chest X-Ray - ED: 1 View, Read by ED Physician, Read by Radiologist, Heart, Lungs, Mediastinum, Bony Structures, No Acute Disease and Chronic Changes Diagnostic Testing: Clinical Impression(s) from Imaging Studies Chest X-Ray 01/10/23 16:19 IMPRESSION: Possible nodular infiltrate mid lung field on the right. Recommend follow-up to resolution with CTA chest or CT chest. Electronically Signed: Henry Worthington MD at 17:23 EST Reading Location ID and State: [address] [place] [address] Tel , Service support , Chest x-ray, portable, single view shows no acute abnormality. Normal cardiac silhouette. No infiltrates. Possible nodule. Discharge Plan Triage Chief Complaint: Cold Sx ED Provider: Alex Jordan Dx/Rx/DC Orders Clinical Impression: History of stem cell transplant, Fever, Viral syndrome, Hx of multiple myeloma, Immunocompromised Instructions: ED Viral Syndrome (Adult) Prescriptions: No Action albuterol sulfate 90 mcg/actuation HFA aerosol inhaler 2 puff inhalation Q4H PRN (Reason: shortness of breath or wheezing) lisinopril 20 mg tablet 20 mg PO DAILY rizatriptan 5 mg tablet See Rx Instructions PO .COMPLEX Rx Instructions: take 1 tablet at onset of headache; if no relief, may repeat 1 tablet after at least 2 hrs PO calcium carbonate-vitamin D3 600 mg-10 mcg (400 unit) tablet 1 tab PO DAILY omeprazole 40 mg capsule,delayed release(DR/EC) 40 mg PO DAILY Patient Comments: TAKE 1 CAPSULE BY MOUTH ONCE DAILY ondansetron HCl 4 mg tablet 4 mg PO Q8H PRN (Reason: nausea and vomiting) Patient Comments: TAKE 1 TABLET BY MOUTH EVERY 8 HOURS NEEDED FOR NAUSEA/VOMITING. FOR NAUSEA acyclovir 400 mg tablet 400 mg PO DAILY Primary Care Provider: Darrell Melo Referrals: Darrell Melo MD [Primary Care Provider] - Matt Tejeda DO [Med Staff - Active Staff] - As Needed Activity Restrictions/Additional Instructions: Plenty of fluids and rest. Tylenol for fever. Call and follow-up with Dr. Tejeda as needed. Return if feeling a lot worse. Disposition Disposition: Home, Self Care
[2023-01-10 17:05] LABS: Absolute Lymphocyte Count 1.25 X10^3/uL (0.83-4.51); Basophil# 0.02 X10^3/uL; Basophil% 0.4 % (0-1); Eosinophil# 0.41 X10^3/uL; Eosinophils% 7.8 % (0-5); Hematocrit 36.3 % (40-54); Hemoglobin 12.4 g/dL (13.0-16.5); Lymphocyte # 1.25 X10^3/ul (0.83-4.51); Lymphocyte % 23.7 % (19-41); Mean Corp Hgb Conc 34.2 g/dL (32-36); Mean Corpuscular Hgb 35.1 pg (27.0-32.0); Mean Corpuscular Volume 102.8 fL (80-94); Mean Platelet Vol. 10.1 fl (6.2-12.0); Monocyte# 0.56 X10^3/uL; Monocyte% 10.6 % (0-10); NRBC Flagged by Analyzer 0 % (0-5); Neutrophil # 3.03 X10^3/uL (2.7-7.7); Neutrophil % 57.5 % (47-70); Platelet Count 166 K/mm3 (150-450); RBC Distribution Width CV 12.5 % (11.6-14.6); RBC Distribution Width SD 46.9 fl (35.1-43.9); Red Blood Count 3.53 M/mm3 (4.6-6.2); White Blood Count 5.3 K/mm3 (4.4-11.0)
[2023-01-10 17:06] LABS: Bacteria 0 SEEN /hpf (None Seen); Mucous, Urine 0 SEEN /hpf (<or=2+); Red Blood Cells-Urine 0 SEEN /hpf (0-5); Squamous Epithelial Cells - UA 0 SEEN /hpf (0-5); White Blood Cells 0 SEEN /hpf (0-5)
[2023-01-10 17:18] LABS: Lactic Acid 0.9 mmol/L (0.4-1.9)
[2023-01-10 17:21] LABS: Color, Urine Yellow (Yellow); Glucose, Dipstick Normal (Normal); Ketone-Dipstick Negative (Negative); Leukocyte Esterase-Dipstick Negative /ul (Negative); Nitrite-Dipstick Negative (Negative); Occult Blood-Urine Negative /ul (Negative); Protein-Dipstick Negative (Negative); Urine Bilirubin Dipstick Negative (Negative); Urine Clarity Clear (Clear); Urine Urobilinogen Normal (Normal); Urine pH 6.5 (5.0 - 8.0)
[2023-01-10 17:27] LABS: AST(SGOT) 49 U/L (15-37); Alanine Aminotransfer ALT/SGPT 67 U/L (16-61); Albumin, Serum 3.1 g/dL (3.2-5.0); Alkaline Phosphatase 181 U/L (45-117); Anion Gap 6 (5-15); BUN 12 mg/dL (7-18); Calcium,Total 8.5 mg/dL (8.5-10.1); Chloride 106 mmol/L (98-107); EST Glomerular Filtration Rate 82 mL/min (>60); Est Glom Filt Rate - Afr Amer 100 mL/min (>60); Estimated Creatinine Clearance 97.04 ml/min; Globulin 3.2 g/dL (2.2-4.2); Glucose 130 mg/dL (74-106); Potassium 3.4 mmol/L (3.5-5.1); Protein, Total 6.3 g/dL (6.4-8.2); Sodium Level 138 mmol/L (136-145)
== END 2023-01-10 19:58 | disposition home or self-care (01) ==
PROVIDERS: Emergency Provider Emergency Medicine; PCP Family Medicine; Visit Provider Emergency Medicine
DX: C90.01 Multiple myeloma in remission (principal); Z94.84 Stem cells transplant status; D84.9 Immunodeficiency, unspecified; Z87.891 Personal history of nicotine dependence; I10 Essential (primary) hypertension; E78.5 Hyperlipidemia, unspecified; R50.9 Fever, unspecified; B34.9 Viral infection, unspecified; Z79.899 Other long term (current) drug therapy; G43.909 Migraine, unspecified, not intractable, without status migrainosus; K21.9 Gastro-esophageal reflux disease without esophagitis
CPT/HCPCS: 71045; 80053; 81001; 83605; 85025; 87040; 87428; 87633; 87807; 99283; A4216

== ENCOUNTER → 2023-02-12 | Outpatient (CLI) | payer OTHER, SELFPAY ==
[2017-08-04 09:01] VITALS: BMI 25.7
--- NOTE | 2023-02-12 07:51 | CT_ITS ---
EXAM: CT CHEST WITHOUT INTRAVENOUS CONTRAST CLINICAL INDICATION: LUNG NODULE TECHNIQUE: Helically acquired images were obtained of the chest without intravenous contrast. This CT exam was performed using one or more of the following dose reduction techniques: automated exposure control, adjustment of the mA and/or kV according to patient size, and/or use of iterative reconstruction technique. RADIATION DOSE: CTDIvol = 15.99 mGy, DLP = 611.34 mGy-cm COMPARISON: February 22, 2016 with some mild dependent lung consolidation. Chest radiograph January 10, 2023 questioned a possible nodular infiltrate right midlung field. FINDINGS: LUNGS AND PLEURAL SPACES: No suspicious pulmonary nodule or infiltrate. Tiny right upper lobe nodule is stable from 2017, it measures roughly 3 mm. Very thin bands of atelectasis or scarring in the posterior lung bases. No pleural effusion or thickening. No pneumothorax. HEART: Slight coronary artery calcifications especially in left anterior descending coronary artery. Heart size is normal. No pericardial effusion. MEDIASTINUM: See below. THYROID: Unremarkable. No thyroid lesions. BONES/JOINTS: Marked compression deformity with vertebroplasty material in T10, no significant retropulsion. The bones appear demineralized. No suspicious lytic or blastic abnormality. SOFT TISSUES: Mild bilateral gynecomastia. VASCULATURE: See above. LYMPH NODES: Slight fluid in the superior pericardial recesses, no significant adenopathy in the mediastinum or hilar regions. GALLBLADDER AND BILE DUCTS: UPPER ABDOMEN: Cholecystectomy. Unremarkable partially included pancreas, adrenals. Possibly mildly dilated upper pole calyx of the left kidney, most of the left kidney is not included. CT/Chest without Contrast IMPRESSION: 1. No suspicious pulmonary nodule, infiltrate, effusion or adenopathy. Stable 3 mm right upper lobe nodule, follow-up is not required. 2. Compression deformity and vertebroplasty in the thoracic body. Demineralization. 3. Presumed cholecystectomy. 4. Moderate stool in the hepatic and splenic flexures. 5. Minimal coronary artery calcifications. Electronically Signed: Kristen Archibald MD at 6:31 EST Reading Location ID and State: [facility] / [place] Tel , Service support ,
== END | disposition home or self-care (01) ==
LOC: CT 07:47
PROVIDERS: PCP Family Medicine
DX: R91.8 Other nonspecific abnormal finding of lung field (principal)
CPT/HCPCS: 71250

== ENCOUNTER → 2023-03-09 | Outpatient (CLI) | payer OTHER, SELFPAY ==
[2017-08-04 09:01] VITALS: BMI 25.7
--- NOTE | 2023-03-09 08:06 | CT_ITS ---
STUDY: CT ABDOMEN AND PELVIS WITH AND WITHOUT CONTRAST REASON FOR EXAM: Male, 57 years old. ELEVATED LFT. Right upper quadrant pain. History of multiple myeloma. Left renal mass. RADIATION DOSAGE (If Supplied By Facility): CTDIvol = ( 20.48 ) mGy, DLP = ( 2228.16 ) mGycm TECHNIQUE: Transaxial images were obtained from the dome of the diaphragm to the symphysis pubis with oral contrast. Oral and amp; IV Readi-CAT and amp; 100mL Isovue-300 was administered. Sagittal and coronal images were reconstructed. Individualized dose optimization techniques were used for this CT. COMPARISON: None. FINDINGS: The visualized lung bases are unremarkable. The visualized portions of the heart are within normal limits. There is decreased attenuation of the liver consistent with steatosis. 1 cm cyst in the inferior aspect of the right lobe of the liver. The patient is status post cholecystectomy. Normal spleen. Normal pancreas. Normal bilateral adrenal glands. Normal right kidney. The left kidney is decreased size as compared to the right. There is deformity of the mid anterior aspect of the left kidney with fullness of the collecting system. Intraluminal filling defect in the renal pelvis cannot be excluded. Correlation with ultrasound is recommended. There is evidence of gastric distention due to residual food particles and fluid. Normal small intestine. Normal colon. The appendix is visualized and appears normal. Normal abdominal aorta. Normal inferior vena cava. Normal retroperitoneum. Normal urinary bladder. Normal abdominal wall. Normal osseous structures. CT/CT Abd/Pelvis W/WO Contrast IMPRESSION: Fatty infiltration of the liver. 1 cm cyst in the inferior aspect of the right lobe of the liver. Alteration of the upper midportion of the left kidney with evidence of atrophy in the fullness of the left renal pelvis. Correlation with ultrasound is recommended. Fluid distention of the stomach. Electronically Signed: Clark French MD at 9:04 EST ,
[2023-03-09 08:34] LABS: CREATININE FINGERSTICK < 1.0 mg/dL (0.70-1.30); EGFR FINGERSTICK > 60.0000 mL/min (>60)
== END | disposition home or self-care (01) ==
PROVIDERS: PCP Family Medicine
DX: R79.89 Other specified abnormal findings of blood chemistry (principal)
CPT/HCPCS: 74178; Q9967; A4216

== ENCOUNTER → 2023-05-19 | Outpatient (CLI) | payer OTHER, SELFPAY ==
[2017-08-04 09:01] VITALS: BMI 25.7
== END | disposition home or self-care (01) ==
LOC: PSN 07:57
PROVIDERS: PCP Family Medicine; Referring Provider Internal Medicine Cardiovascular Disease; Visit Provider Internal Medicine Cardiovascular Disease
DX: I47.10 Supraventricular tachycardia, unspecified (principal)
CPT/HCPCS: 93225; 93226

== ENCOUNTER 2023-12-01 19:28 | Emergency (ER) | payer OTHER, SELFPAY ==
[2017-08-04 09:01] VITALS: BMI 25.7
[2023-12-01 19:28] VITALS: BP 143/82; PULSE 76; RESP 18; TEMP 36.4; O2SAT 97; BMI 29.5
--- NOTE | 2023-12-01 19:57 | EKG12_ITS ---
Test Reason : CP Blood Pressure : / mmHG Vent. Rate : 074 BPM Atrial Rate : 074 BPM P-R Int : 128 ms QRS Dur : 090 ms QT Int : 388 ms P-R-T Axes : 013 -20 023 degrees QTc Int : 430 ms Normal sinus rhythm Minimal voltage criteria for LVH, may be normal variant ( R in aVL ) Borderline ECG Confirmed by Aramis Blanco ([id number]), assistant production editor CHEMA DE [place] O ([id number]) on 12/02/2023 1:40:25 PM Referred By: Confirmed By:Aramis Blanco
--- NOTE | 2023-12-01 19:58 | EDS_ITS ---
HPI History of Present Illness Chief Complaint: Chest Pain Informant: patient and spouse/S.O. Narrative Narrative: 58-year-old male with multiple myeloma on chemotherapy states since Tuesday 3 days ago he has been feeling poorly, with myalgias, subjective fevers, h eadaches, minor cough, and since this morning all day today he has had some mild squeezing sensation retrosternal without radiation that seems worse when he ever he bends over. He presents after 1900. He denies dyspnea. He denies GI symptoms. He was supposed to temporarily discontinue his chemotherapy while he had a PICC placed down at [facility] for a different MM treatment, but when he was there right after having the PICC placed, the results of his PET scan showed a spot on his right lung and so they aborted that and he was to continue his chemotherapy treatments which he has done today. The PICC was placed the same day he started feeling poorly but he had already been feeling poorly, but after the PICC was placed he has been having relatively brief palpitations off and on. None of them have been associated with near-syncope or syncope, or any other acute symptoms at that time. [facility] Medical History Essential (primary) hypertension Hyperlipidemia Skin cancer of forehead (~2013) Pathologic compression fracture of thoracic vertebra Migraine Lung nodule Left leg DVT (~07/29/16) GERD (gastroesophageal reflux disease) Depression Asthma H/O multiple myeloma Home Medications ?Medication ?Instructions ?Recorded ?Last Taken ?Type albuterol sulfate 90 mcg/actuation 2 puff inhalation Q4H PRN 02/12/22 Unknown History aerosol inhaler shortness of breath or wheezing rizatriptan 5 mg tablet See Rx Instructions PO .COMPLEX 02/12/22 Unknown History calcium 600 mg (as 1 tab PO DAILY 02/24/22 Unknown History carbonate)-vitamin D3 10 mcg (400 unit) tablet ondansetron HCl 4 mg tablet 4 mg PO Q8H PRN nausea and vomiting 05/14/22 Unknown History pantoprazole 40 mg tablet,delayed 40 mg PO DAILY 01/14/23 Unknown History release acyclovir 400 mg tablet 400 mg PO BID 05/18/23 Unknown History aspirin 81 mg tablet,delayed 162 mg PO DAILY 05/18/23 Unknown History release daratumumab 1,800 15 ml subcut Q4W 05/18/23 Unknown History hs-ylsjgncrpphaz-wjuf 30,000 unit/15 mL subcut soln (Darzalex Faspro) dexamethasone 4 mg tablet 40 mg PO .once week 05/18/23 Unknown History pomalidomide 2 mg capsule See Rx Instructions PO .COMPLEX 05/18/23 Unknown History (Pomalyst) levofloxacin 750 mg tablet 750 mg PO Q24H #4 tabs 12/01/23 Unknown Rx Allergy/AdvReac Type Severity Reaction Status Date / Time iodine Allergy Severe Shortness Verified 12/01/23 19:31 of breath Environmental Allergies: Allergy Intermediate Other Verified 12/01/23 19:31 Uncoded naproxen AdvReac Mild Other Verified 12/01/23 19:31 Family History Mother Breast cancer Grandmother Diabetes Aunt Cancer Father Arrhythmia Surgical History H/O knee surgery H/O vertebroplasty Hx laparoscopic cholecystectomy (~02/19/16) Hx of arthroscopy of knee (~2004) Hx of biopsy (~04/19/22) Social History Smoking Status: Former smoker Tobacco: How many years used: 5 how long ago did patient quit smokin alcohol intake: never substance use type: does not use caffeine: Yes Type: coffee Number of servings: 1 ROS ROS ED Constitutional Constitutional ED: Reports body ache(s), chills, fatigue, fever(s), headache(s) and malaise Eyes Eyes: Denies change in vision or diplopia ENT ENT ED: Denies rhinorrhea or sore throat Cardiovascular Cardiovascular: Reports palpitations; Denies chest pain, racing heartbeat or syncope Respiratory/Chest Respiratory/Chest: Reports cough; Denies dyspnea, dyspnea on exertion or sputum Gastrointestinal Gastrointestinal: Denies abdominal pain, diarrhea, nausea or vomiting Genitourinary Genitourinary ED: Denies dysuria or hematuria Musculoskeletal Musculoskeletal: Denies back pain or neck pain Integumentary Denies abscess or rash Neurologic Neurologic: Reports headache(s); Denies paresthesias or weakness Psychiatric Psychiatric: Denies anxiety or suicidal thoughts EXAM Physical Exam Const Vital Signs: 10/17/24 19:28 12/01/23 20:14 12/01/23 20:28 Temperature 97.6 F L Temperature Source Oral Pulse Rate 76 69 Respiratory Rate 18 19 H Blood Pressure 143/82 H 115/90 H Blood Pressure Mean 102 98 Pulse Ox 97 99 98 Oxygen Delivery Method Room Air Room Air Room Air 12/01/23 21:00 12/01/23 22:00 12/01/23 22:42 Temperature 98 F Temperature Source Pulse Rate 70 64 71 Respiratory Rate 18 16 16 Blood Pressure 117/87 H 117/87 H 127/88 H Blood Pressure Mean 97 97 101 Pulse Ox 95 98 99 Oxygen Delivery Method Room Air Positive well nourished and well developed Constitutional Narrative: Well-appearing, no distress General Appearance ED: well developed and NAD HEENT Reports moist mucous membranes normocephalic and atraumatic Eyes PERRL and EOMs intact bilaterally Neck full ROM, no lymphadenopathy and supple Resp normal respiratory effort and clear to auscultation bilaterally Cardio regular rate, regular rhythm and no murmurs Rate: Negative for tachycardic GI non-tender and non-distended Auscultation: normoactive bowel sounds Palpation: soft Back/Spine no CVA tenderness General Back: other FROM Extremity normal to inspection and no calf tenderness General Extremety ED: Negative for edema, pulses abnormal or tenderness General Extremity: Negative for edema or pulses abnormal Neuro oriented x3, CN's II-XII intact bilaterally and no sensory deficits noted Sensorium / Orientation: awake and alert Motor Exam: strength 5/5 throughout Psych mental status grossly normal Skin no rashes or lesions noted and no wounds MDM MDM MDM Narrative Medical decision making narrative: Obtained basically an infectious workup on this patient along with blood cultures given his immunocompromise state. COVID/influenza/RSV swab is negative, he has total white blood count of 5.8 and an ANC of about 5200, certainly not neutropenic or leukopenic. The rest of his blood counts look go od. Two-view chest x-ray my interpretation shows right lower lobe infiltrate. I suspect this is the cause of his symptoms and fevers. He is not tachycardic, his vital signs are normal including pulse oximetry at 99% on room air, and he complains of no dyspnea. His cardiac workup is negative/normal and he did not have any recurrent palpitations while in emergency department nor did he have telemetry events or dysrhythmias. Additionally on his chest x-ray, I reviewed the placement of his PICC, it appears to be in good position with the end of it in or near the SVC. I do not think this needs to be removed because of the palpitations. We do not have any Holter monitors to place in this patient available right now. I believe he can safely be treated as an outpatient with antibiotics assuming this is bacterial pneumonia although viral etiologies are certainly in the differential, this does appear to be a mild lobar pneumonia making bacterial causes more likely. He was started on Levaquin, will prescribe him the rest of the course, and have him follow-up closely as an outpatient. He and are comfortable with that overall plan. Lab Data Attestation: I reviewed the patient's lab results. Labs: Laboratory Results - last 24 hr 12/01/23 20:14 WBC 5.8 RBC 4.40 L Hgb 14.2 Hct 42.0 MCV 95.5 H MCH 32.3 H MCHC 33.8 RDW Std Deviation 47.6 H RDW Coeff of Jocy 13.3 Plt Count 171 MPV 9.9 Immature Gran % (Auto) 0.500 Neut % (Auto) 89.1 H Lymph % (Auto) 8.7 L Garvin % (Auto) 1.2 Eos % (Auto) 0.2 Baso % (Auto) 0.3 Absolute Neuts (auto) 5.2 Absolute Lymphs (auto) 0.51 L Nucleated RBC % 0 Sodium 134 L Potassium 4.8 Chloride 105 Carbon Dioxide 22.0 Anion Gap 7 BUN 18 Creatinine 0.97 Estim Creat Clear Calc 109.40 Est GFR (MDRD) Af Amer 103 Est GFR (MDRD) Non-Af 85 BUN/Creatinine Ratio 18.6 Glucose 152 H Calcium 9.2 Troponin I High Sens 4 Radiography Diagnostic Testing: Clinical Impression(s) from Imaging Studies Chest X-Ray 12/01/23 20:20 IMPRESSION: 1. Mild patchy pneumonic consolidation of the right lower lobe. Electronically Signed: Refugio Rico MD at 20:38 EDT Reading Location ID and State: [facility] / [place] , Service support , Rhythm Strip Rhythm Strip: Sinus Rhythm Rate: 75 Ectopy: None EKG Initial EKG: Attestation: I personally reviewed and interpreted this EKG as follows: Interpretation: Sinus Rhythm and No Acute Injury Pattern Prior EKG tracings: available for review Prior: Unchanged Discharge Plan Triage Chief Complaint: Chest Pain ED Provider: Jaxson De La Rosa Dx/Rx/DC Orders Clinical Impression: Pneumonia, Palpitations, Immunocompromised state due to drug therapy, Chest pain, non-cardiac Instructions: ED Palpitations, ED Pneumonia (Adult) Prescriptions: New levofloxacin 750 mg tablet 750 mg PO Q24H Qty: 4 0RF No Action albuterol sulfate 90 mcg/actuation HFA aerosol inhaler 2 puff inhalation Q4H PRN (Reason: shortness of breath or wheezing) rizatriptan 5 mg tablet See Rx Instructions PO .COMPLEX Rx Instructions: take 1 tablet at onset of headache; if no relief, may repeat 1 tablet after at least 2 hrs PO calcium carbonate-vitamin D3 600 mg-10 mcg (400 unit) tablet 1 tab PO DAILY ondansetron HCl 4 mg tablet 4 mg PO Q8H PRN (Reason: nausea and vomiting) Patient Comments: TAKE 1 TABLET BY MOUTH EVERY 8 HOURS NEEDED FOR NAUSEA/VOMITING. FOR NAUSEA pantoprazole 40 mg tablet,delayed release (DR/EC) 40 mg PO DAILY Patient Comments: TAKE 1 TABLET BY MOUTH EVERY DAY aspirin 81 mg tablet,delayed release (DR/EC) 162 mg PO DAILY dexamethasone 4 mg tablet 40 mg PO .once week Pomalyst 2 mg capsule See Rx Instructions PO .COMPLEX Rx Instructions: orally take daily for 21 days; Darzalex Faspro 1,800 mg-30,000 unit/15 mL solution 15 ml subcut Q4W acyclovir 400 mg tablet 400 mg PO BID Primary Care Provider: Darrell Melo Referrals: Darrell Melo MD [Primary Care Provider] - 3-5 Days Matt Tejeda DO [Med Staff - Active Staff] - 3-5 Days Activity Restrictions/Additional Instructions: Start your prescription before bed 12/01 and continue taking every 24 hours until finished. It is a 10-day course of antibiotics that you take in 5 days. Print Language: Moroccan Disposition Disposition: Home, Self Care Discharge Date/Time: 12/01/23 22:42
[2023-12-01 20:14] VITALS: O2SAT 99
--- NOTE | 2023-12-01 20:20 | RAD_ITS ---
STUDY: X-RAY CHEST REASON FOR EXAM: Male, 58 years old. chest pain, cough, fever TECHNIQUE: PA and lateral views of the chest. COMPARISON: January 10, 2003 FINDINGS: Cystic emphysematous changes are present. Mild patchy consolidation is seen in the right lower lobe. The remaining lung reyes are clear of an acute process. Left-sided PICC line tip terminates above the right atrium. There is no demonstrated pleural abnormality. Normal size heart. Normal mediastinum and juan. Normal visualized pulmonary arteries. There is atherosclerotic calcification of the aortic arch with tortuosity. There are diffuse degenerative changes of the visualized thoracic spine. Normal visualized ribs, clavicles, and shoulders. There is no demonstrated abnormality of the visualized soft tissue structures of the upper abdomen. Old fracture deformity of the thoracic spine noted. RAD/Chest PA and Lateral IMPRESSION: 1. Mild patchy pneumonic consolidation of the right lower lobe. Electronically Signed: Refugio Rico MD at 20:38 EDT ,
[2023-12-01 20:25] LABS: Absolute Lymphocyte Count 0.51 X10^3/uL (0.83-4.51); Absolute Neutrophil Count 5.2 X10^3/uL (2.0-7.7); Basophil# 0.02 X10^3/uL; Basophil% 0.3 % (0-1); Eosinophil# 0.01 X10^3/uL; Eosinophils% 0.2 % (0-5); Hemoglobin 14.2 g/dL (13.0-16.5); Lymphocyte # 0.51 X10^3/ul (0.83-4.51); Lymphocyte % 8.7 % (19-41); Mean Corp Hgb Conc 33.8 g/dL (32-36); Mean Corpuscular Hgb 32.3 pg (27.0-32.0); Mean Corpuscular Volume 95.5 fL (80-94); Mean Platelet Vol. 9.9 fl (6.2-12.0); Monocyte# 0.07 X10^3/uL; Monocyte% 1.2 % (0-10); NRBC Flagged by Analyzer 0 % (0-5); Neutrophil % 89.1 % (47-70); POSITIVE DIFFERENTIAL YES; Platelet Count 171 K/mm3 (150-450); RBC Distribution Width CV 13.3 % (11.6-14.6); RBC Distribution Width SD 47.6 fl (35.1-43.9); White Blood Count 5.8 K/mm3 (4.4-11.0)
[2023-12-01 20:28] VITALS: BP 115/90; PULSE 69; RESP 19; O2SAT 98
[2023-12-01 21:00] VITALS: BP 117/87; PULSE 70; RESP 18; O2SAT 95
[2023-12-01 21:12] LABS: Anion Gap 7 (5-15); BUN 18 mg/dL (7-18); BUN/Creat Ratio 18.6 RATIO (10-20); Calcium,Total 9.2 mg/dL (8.5-10.1); Chloride 105 mmol/L (98-107); Creatinine, Serum 0.97 mg/dL (0.70-1.30); EST Glomerular Filtration Rate 85 mL/min (>60); Est Glom Filt Rate - Afr Amer 103 mL/min (>60); Glucose 152 mg/dL (74-106); Potassium 4.8 mmol/L (3.5-5.1); Sodium Level 134 mmol/L (136-145); Troponin-I HS 4 pg/mL (3.0-78.0)
[2023-12-01 22:00] VITALS: BP 117/87; PULSE 64; RESP 16; O2SAT 98
[2023-12-01] MEDS: levoFLOXacin 750 MG Tablet PO (22:38)
[2023-12-01 22:42] VITALS: BP 127/88; PULSE 71; RESP 16; TEMP 36.6; O2SAT 99
== END 2023-12-01 22:42 | disposition home or self-care (01) ==
PROVIDERS: Emergency Provider Emergency Medicine; PCP Family Medicine; Visit Provider Emergency Medicine
DX: R07.9 Chest pain, unspecified (principal); C90.00 Multiple myeloma not having achieved remission; J18.9 Pneumonia, unspecified organism; I10 Essential (primary) hypertension; E78.5 Hyperlipidemia, unspecified; R00.2 Palpitations; Z87.891 Personal history of nicotine dependence; D84.821 Immunodeficiency due to drugs; Z85.828 Personal history of other malignant neoplasm of skin; K21.9 Gastro-esophageal reflux disease without esophagitis; Z79.899 Other long term (current) drug therapy; Z79.82 Long term (current) use of aspirin; Z90.49 Acquired absence of other specified parts of digestive tract
CPT/HCPCS: 71046; 80048; 84484; 85025; 87040; 87631; 93005; 99284; A4216

== ENCOUNTER 2023-12-09 13:21 | Emergency (ER) | payer OTHER, SELFPAY ==
[2017-08-04 09:01] VITALS: BMI 25.7
[2023-12-09 13:22] VITALS: BP 151/97; TEMP 36.8; BMI 29.5
--- NOTE | 2023-12-09 13:43 | EDS_ITS ---
HPI History of Present Illness Chief Complaint: Wound Check Informant: patient and spouse/S.O. Narrative Narrative: History of multiple myeloma test in 2017 with previous stem cell transplant. Presents today recent clot to his PICC line left arm. Initially placed 11 days ago down in [place]. He had some discomfort in left arm saw his local oncologist Dr. Tejeda 2 days ago outpatient ultrasound positive for upper extremity DVT left basilic and brachial veins. This was seen on his report on his phone. He was started on Eliquis 2 days ago and is compliant. Increasing swelling since then and noticed some redness distal to the PICC line. He has plans of starting CAR-T cell therapy which is planned for 30-60 days per the patient. He denies any fevers. Discussed with nursing at the office who referred him here. [facility] Medical History Essential (primary) hypertension Hyperlipidemia Skin cancer of forehead (~2013) Pathologic compression fracture of thoracic vertebra Migraine Lung nodule Left leg DVT (~07/29/16) GERD (gastroesophageal reflux disease) Depression Asthma H/O multiple myeloma Home Medications ?Medication ?Instructions ?Recorded ?Last Taken ?Type albuterol sulfate 90 mcg/actuation 2 puff inhalation Q4H PRN 02/12/22 Unknown History aerosol inhaler shortness of breath or wheezing rizatriptan 5 mg tablet See Rx Instructions PO .COMPLEX 02/12/22 Unknown History calcium 600 mg (as 1 tab PO DAILY 02/24/22 Unknown History carbonate)-vitamin D3 10 mcg (400 unit) tablet ondansetron HCl 4 mg tablet 4 mg PO Q8H PRN nausea and vomiting 05/14/22 Unknown History pantoprazole 40 mg tablet,delayed 40 mg PO DAILY 01/14/23 Unknown History release acyclovir 400 mg tablet 400 mg PO BID 05/18/23 Unknown History aspirin 81 mg tablet,delayed 162 mg PO DAILY 05/18/23 Unknown History release daratumumab 1,800 15 ml subcut Q4W 05/18/23 Unknown History va-cirizgmxclupm-uoqb 30,000 unit/15 mL subcut soln (Darzalex Faspro) dexamethasone 4 mg tablet 40 mg PO .once week 05/18/23 Unknown History pomalidomide 2 mg capsule See Rx Instructions PO .COMPLEX 05/18/23 Unknown History (Pomalyst) levofloxacin 750 mg tablet 750 mg PO Q24H #4 tabs 12/01/23 Unknown Rx Allergy/AdvReac Type Severity Reaction Status Date / Time Environmental Allergies: Allergy Intermediate Other Verified 12/09/23 13:22 Uncoded naproxen AdvReac Mild Other Verified 12/09/23 13:22 Family History Mother Breast cancer Grandmother Diabetes Aunt Cancer Father Arrhythmia Surgical History H/O knee surgery H/O vertebroplasty Hx laparoscopic cholecystectomy (~02/19/16) Hx of arthroscopy of knee (~2004) Hx of biopsy (~04/19/22) Social History Smoking Status: Former smoker Tobacco: How many years used: 5 how long ago did patient quit smokin alcohol intake: never substance use type: does not use caffeine: Yes Type: coffee Number of servings: 1 ROS ROS ED Constitutional Constitutional ED: Denies chills, fever(s) or sweats Eyes Eyes: Denies change in vision ENT ENT ED: Denies dysphagia or sore throat Cardiovascular Cardiovascular: Denies chest pain, leg edema, palpitations or racing heartbeat Respiratory/Chest Respiratory/Chest: Denies cough, dyspnea or dyspnea on exertion Gastrointestinal Gastrointestinal: Denies abdominal pain, diarrhea, nausea or vomiting Genitourinary Genitourinary ED: Denies dysuria, hematuria or urinary frequency Musculoskeletal Musculoskeletal: Reports extremity pain; Denies back pain or neck pain Integumentary Denies rash or wounds Neurologic Neurologic: Denies headache(s), paresthesias or weakness EXAM Physical Exam Const Vital Signs: 12/09/23 13:22 Temperature 98.2 F Temperature Source Oral Blood Pressure 151/97 H Blood Pressure Mean 115 Positive well nourished and well developed General Appearance ED: well developed and NAD HEENT Reports moist mucous membranes normocephalic and atraumatic Eyes EOMs intact bilaterally and conjunctivae normal General Eye ED: Yes normal appearance of both eyes Neck no lymphadenopathy and supple General: Negative for tenderness Chest Wall Chest: Negative for tenderness Resp normal respiratory effort and normal air movement Effort and Inspection: symmetric chest movement; Negative for respiratory distress Cardio regular rate, regular rhythm and no murmurs Peripheral Pulses: pulses 2+ throughout GI normal to inspection, nondistended, normoactive bowel sounds and non-tender Palpation: Negative for guarding or rebound tenderness present Back/Spine no CVA tenderness and no thoracic nor lumbar tenderness Extremity Extremity Narrative: Left upper extremity: PICC line upper arm medial aspect. There is erythema distal to the arm extending distal humerus. No warmth. Full range of motion of elbow. Soft compartments. Slight swelling distally compared to the right side. Pulses are intact. General Extremety ED: Yes edema and tenderness General Extremity: edema Neuro oriented x3 and no sensory deficits noted Sensorium / Orientation: awake and alert Skin no rashes or lesions noted and no wounds MDM MDM MDM Narrative Medical decision making narrative: Interventions / MDM: Differential diagnosis:Left upper extremity DVT, PICC line, thrombophlebitis. Diagnosis considered but do not suspect: lower suspicion for cellulitis. My EKG interpretation: N/A Imaging independently reviewed and interpreted by myself: N/A External documents reviewed: N/A Test considered but not ordered:N/A ED course: Patient known recent DVT on Eliquis. He has had swelling since then, this is expected with DVT. His area of redness concerns more thrombophlebitis with the region of the occlusion. He has no fevers. He is currently not on chemo treatment. I reached out and discussed with on-call oncologist Dr. Navarrete at 1344, discussed patient's history findings and plan of care from his primary oncologist with continued anticoagulants. Discussed region concerning for superficial thrombophlebitis, he has no fevers. He states reassurance continued on his anticoagulants at this time with warm compresses. Discussed the plan with the patient and significant other. Discussed follow-up with his oncology team for outpatient evaluation. Discussed if he develops fevers, other options may need to be revisited. All questions were answered. Re-evaluation: stable Disposition discussed with patient/family/significant other: Patient and significant other Case discussed with consulting clinician: Oncology This note was generated with [employer] software. It may contain incorrect words, spelling, and punctuation that were not noted in checking the note before signing. Discharge Plan Triage Chief Complaint: Wound Check ED Provider: Tejas Carney Dx/Rx/DC Orders Clinical Impression: Acute deep vein thrombosis of left upper extremity, Deep vein thrombophlebitis of arm, Status post PICC central line placement Instructions: ED Deep Vein Thrombosis (DVT), ED Thrombophlebitis, Superficial Prescriptions: No Action albuterol sulfate 90 mcg/actuation HFA aerosol inhaler 2 puff inhalation Q4H PRN (Reason: shortness of breath or wheezing) rizatriptan 5 mg tablet See Rx Instructions PO .COMPLEX Rx Instructions: take 1 tablet at onset of headache; if no relief, may repeat 1 tablet after a t least 2 hrs PO calcium carbonate-vitamin D3 600 mg-10 mcg (400 unit) tablet 1 tab PO DAILY ondansetron HCl 4 mg tablet 4 mg PO Q8H PRN (Reason: nausea and vomiting) Patient Comments: TAKE 1 TABLET BY MOUTH EVERY 8 HOURS NEEDED FOR NAUSEA/VOMITING. FOR NAUSEA pantoprazole 40 mg tablet,delayed release (DR/EC) 40 mg PO DAILY Patient Comments: TAKE 1 TABLET BY MOUTH EVERY DAY aspirin 81 mg tablet,delayed release (DR/EC) 162 mg PO DAILY dexamethasone 4 mg tablet 40 mg PO .once week Pomalyst 2 mg capsule See Rx Instructions PO .COMPLEX Rx Instructions: orally take daily for 21 days; Darzalex Faspro 1,800 mg-30,000 unit/15 mL solution 15 ml subcut Q4W acyclovir 400 mg tablet 400 mg PO BID levofloxacin 750 mg tablet 750 mg PO Q24H Qty: 4 0RF Primary Care Provider: Darrell Melo Referrals: Darrell Melo MD [Primary Care Provider] - Matt Tejeda DO [Med Staff - Active Staff] - 1-2 Weeks Activity Restrictions/Additional Instructions: Discussed with Dr. Navarrete. Warm compresses. Continue her Eliquis. Maintain your PICC line. Follow-up with your oncology team. Print Language: Georgian Disposition Disposition: Home, Self Care Discharge Date/Time: 12/09/23 14:17
== END 2023-12-09 14:17 | disposition home or self-care (01) ==
LOC: ED 14:17
PROVIDERS: Emergency Provider Emergency Medicine; PCP Family Medicine; Visit Provider Emergency Medicine
DX: I82.622 Acute embolism and thrombosis of deep veins of left upper extremity (principal); I80.12 Phlebitis and thrombophlebitis of left femoral vein; Z79.01 Long term (current) use of anticoagulants; E78.5 Hyperlipidemia, unspecified; I10 Essential (primary) hypertension; Z87.891 Personal history of nicotine dependence; Z85.828 Personal history of other malignant neoplasm of skin; K21.9 Gastro-esophageal reflux disease without esophagitis; Z79.899 Other long term (current) drug therapy; Z79.82 Long term (current) use of aspirin; Z90.49 Acquired absence of other specified parts of digestive tract
CPT/HCPCS: 99282

== ENCOUNTER → 2024-08-30 | Outpatient (CLI) | payer OTHER, SELFPAY ==
[2017-08-04 09:01] VITALS: BMI 25.7
--- NOTE | 2024-08-30 12:28 | STRESSREP ---
Stress Test Report Exercise myocardial perfusion stress test. 59-year-old male with a history of previous abnormal stress test Stress protocol: Resting EKG demonstrates normal sinus rhythm with a rate of 65 bpm resting blood pressure is 126/82 mmHg. The patient exercised according to the regular Joby protocol for a total duration of 9 minutes attaining a maximum heart rate of 153 bpm which was 93% of maximum predicted heart rate; the maximum workload was 10.1 metabolic equivalents. At rest there were no ST or T wave changes noted to suggest ischemia and at peak exercise upsloping ST changes only were noted which did not meet the criteria for ischemia. No clinical angina was noted the test was terminated due to the target heart rate being achieved/fatigue. The peak blood pressure was 164/64 mmHg. Rate-pressure product was 23,800. Myocardial perfusion protocol. 14.1 mCi of technetium 99m sestamibi was injected at rest. The patient exercised according to regular Joby protocol for total duration of 9 minutes and at peak exercise 45 mCi of technetium 99m sestamibi was injected stress images were obtained stress and rest images were reconstructed in comparing the short axis vertical long and horizontal long axis. Gated images were also obtained. Perfusion SPECT analysis: Review of the stress images demonstrate normal uptake of tracer noted in all areas of the myocardium. The resting images similarly demonstrate normal uptake of tracer noted in all areas of the myocardium. No areas of reversibility are noted to suggest ischemia no previous infarct was noted. Gated SPECT analysis: The gated ejection fraction is 57%. Conclusion: Normal exercise myocardial perfusion stress test at a high workload Preserved ejection fraction.
== END | disposition home or self-care (01) ==
LOC: CVS 06:32
PROVIDERS: PCP Family Medicine; Referring Provider Student in an Organized Health Care Education/Training Program; Visit Provider Student in an Organized Health Care Education/Training Program
DX: R94.39 Abnormal result of other cardiovascular function study (principal); R06.09 Other forms of dyspnea
CPT/HCPCS: 78452; 93017; A9500; A4216